=== PATIENT | male | born 2005 | race Hispanic/Latino ===

== ENCOUNTER 2024-10-25 21:19 | Emergency (ER) | payer OTHER, SELFPAY ==
[2024-10-25 21:21] VITALS: BP 127/74; PULSE 88; RESP 16; TEMP 36.6; O2SAT 98
--- OUTSIDE RECORDS SUMMARY | 2024-10-25 21:21 | XMS_ITS | Referral Summary ---
Author Organization [facility] Address [address] [place] [address] Care Team Providers Care Developer Automatic Name Role Phone Unknown, Notinfile Primary Care Provider Unavail able Allergies No known active allergies Medications No known medications Social History Tobacco Use Types Packs/Day Years Used Date Smoking Tobacco: Never Assessed Personal Safety Answer Date Recorded Have you ever been in or are you currently in a harmful physical or emotional relationship or is someone making you feel afraid or unsafe? Denies 05/05/2023 Sex and Gender Information Value Date Recorded Sex Assigned at Not on file Legal Sex Male 3:09 PM CDT Gender Identity Not on file Sexual Orientation Not on file Last Filed Vital Signs Vital Sign Reading Time Taken Comments Blood Pressure 134/69 05/05/2023 1:30 PM CDT Pulse 90 05/05/2023 1:30 PM CDT Temperature 36.7 C (98.1 F) 05/05/2023 9:19 AM CDT Respiratory Rate 18 05/05/2023 9:19 AM CDT Oxygen Saturation 97% 05/05/2023 1:30 PM CDT Inhaled Oxygen Concentration - - Weight 72.6 kg (160 lb) 05/05/2023 4:03 AM CDT Height - - Body Mass Index - - Plan of Treatment Not on file Insurance [facility] [place] [address] MEDICAID Care Teams Developer Automatic Relationship Specialty Start Date End Date Unknown, Notinfile PCP - General 06/09/18
--- OUTSIDE RECORDS SUMMARY | 2024-10-25 21:21 | XMS_ITS | Referral Summary ---
Author Organization [facility] Address [address] [place] [address] Care Team Providers Care Chandelier Maker Name Role Phone Dominic Kingston MD Primar y Care Provider Source Comments [facility],non-owned Affiliates and Associated Physician Practices is amultiple site organization consisting of ambulatory clinics and hospital sitesin [place], [place], [place] and [place]. This disclosure is being madepursuant to the Care Everywhere program and may not contain all information available regarding this patient. Last updated 18.[facility] Position[facility] Allergies No known active allergies Medications * Be aware that medications may not be up to date on this document. Alwaysverify current medications with the patient. Medication Sig Dispensed Refills Start Date End Date Status acetaminophen (TYLENOL) 160 MG/5ML solution Take 20 mL by mouth every 6 hours as needed for Fever or Pain 237 mL 1 06/02/2018 Active ibuprofen (ADVIL; MOTRIN) 100 MG/5ML suspension Take 15 mL by mouth every 6 hours as needed for Pain or Fever 237 mL 1 06/05/2018 Active Active Problems Problem Noted Date Diagnosed Date Mucocele of lower lip 05/16/2018 Social History Tobacco Use Types Packs/Day Years Used Date Smoking Tobacco: Never Smokeless Tobacco: Never Sex and Gender Information Value Date Recorded Sex Assigned at Not on file Gender Identity Not on file Sexual Orientation Not on file Last Filed Vital Signs Vital Sign Reading Time Taken Comments Blood Pressure 117/78 06/02/2018 12:00 PM CDT Pulse 69 06/02/2018 12:00 PM CDT Temperature 36.7 C (98 F) 06/02/2018 11:19 AM CDT Respiratory Rate 20 06/02/2018 12:00 PM CDT Oxygen Saturation 98% 06/02/2018 12:00 PM CDT Inhaled Oxygen Concentration - - Weight 53.8 kg (118 lb 9.7 oz) 06/02/2018 8:14 A M CDT Height 162 cm (5' 3.78 ) 06/02/2018 8:14 AM CDT Body Mass Index 20.5 06/02/2018 8:14 AM CDT Functional Status Functional Status Response Date of Assess ment Is person deaf or have serious hearing difficult y? No 06/02/2018 Is person blind or have serious difficulty seein g? No 06/02/2018 Does person have serious dif ficulty walking/climbing stairs? No 06/02/2018 Does person have difficulty dressing/bathing? No 06/02/2018 Does person have difficulty doing errands alone? No 06/02/2018 Cognitive Status Response Date of Assessm ent Does person have difficulty concentrating/remembering/making decisions? No 06/02/2018 Plan of Treatment Not on file Care Teams Chandelier Maker Relationship Specialty Start Date End Date Dominic Kingston MD [address] [place] [id number] PCP - General Internal Medicine 11/07/17
--- OUTSIDE RECORDS SUMMARY | 2024-10-25 21:21 | XMS_ITS | Patient Health Summary ---
Author Organization [facility] Address [address] [place] [place] [address] Care Team Providers Care Manufacturing Management Associate Name Role Phone Dominic Kingston MD Primar y Care Provider Note from [facility],non-owned Affiliates and Associated Physician Practices is amultiple site organization consisting of ambulatory clinics and hospital sitesin [place], [place], [place] and [place]. This disclosure is being madepursuant to the Care Everywhere program and may not contain all information available regarding this patient. Last updated 18.[facility] Allergies No known active allergies Medications * Be aware that medications may not be up to date on this document. Alwaysverify current medications with the patient. * acetaminophen (TYLENOL) 160 MG/5ML solution(Started 06/02/2018) Take 20 mL by mouth every 6 hours as needed for Fever or Pain 1 refill remaining * ibuprofen (ADVIL; MOTRIN) 100 MG/5ML suspension(Started 06/05/2018) Take 15 mL by mouth every 6 hours as needed for Pain or Fever 1 refill remaining Active Problems Problem Noted Date Diagnosed Date [...] Mass Index 20.5 06/02/2018 8:14 AM CDT Procedures * PATHOLOGY TISSUE EXAM (STL)(Performed 06/02/2018) Performed for Acquired anomaly of mouth * EXCISION LESION SIMPLE REPAIR MOUTH OF MUCOSA AND SUB MUCOSA(Performed 06/02/2018) Performed for Acquired anomaly of mouth * EKG 15-LEAD(Performed 11/20/2017) Performed for Cardiac murmur, previously undiagnosed Results * GROSS + MICRO EXAM (STL) (06/02/2018 10:52 AM CDT) Case Report Surgical Pathology Report Case: [id number] Authorizing Provider: Praneeth Andrew MD Collected: 06/02/2018 10:52 AM Ordering Location: [facility] Received: 06/02/2018 12:27 PM Pathologist: Evette Arellano MD Specimen: Mucocele, mucocele- left lower lip 06/04/2018 6:58 PM T [facility] Final Diagnosis SOFT TISSUE, LEFT LOWER LIP, EXCISION: - MUCOCELE WITH ACUTE AND CHRONIC INFLAMMATION SALIVARY GLAND, LEFT LOWER LIP: - MILD CHRONIC INFLAMMATION 06/04/2018 6:58 PM [facility] Clinical History The patient is a 12-year-old boy who underwent excision of an oral mucocele after biting his lip 3 years ago. 06/04/2018 6:58 PM T [facility] Gross Description Submitted fresh in one container for gross and microscopic examination, labeled with the patient's name, Dmitry Araya, and left lower mucocele is a 0.7 x 0.4 x 1 cm fragment of roberts-baxter mucosa with attached red-baxter soft tissue. This portion of the specimen is bisected and submitted in cassette A1. Also submitted in the same container are three irregularly-shaped fragments of glistening, pink-baxter soft tissue with an aggregate measurement of 1 x 1.2 x 0.3 cm. This portion of the specimen is submitted in cassette A2. (CT/ns) 06/04/2018 6:58 PM [facility] Microscopic Description 2 H&E Sections show squamous mucosa with salivary glands with mild chronic inflammation with edema, lymphocytes and plasma cells and fibroconnective tissue with irregular cystic spaces without epithelial lining with muciphages, granulation tissue and moderate acute and chronic inflammation. 06/04/2018 6:58 PM T [facility] Disclaimer The performance characteristics of all immunohistochemical and indirect immunofluorescence stains (if any) cited in this report were determined by the Histopathology Laboratory of [facility]. Some of these tests were developed by our own laboratory and have not been cleared or approved by the US Food and Drug Administration (FDA). The FDA does not require this test to go through premarket FDA review. These tests are used for clinical purposes. They should not be regarded as investigational or for research. This laboratory is certified under the Clinical Laboratory Improvement Amendments (CLIA) as qualified to perform high complexity clinical laboratory testing. This case has been personally reviewed and interpreted by the attending (teaching) pathologist. 06/04/2018 6:58 PM T [facility] Embedded Images 06/04/2018 6:58 PM [facility] Pathology/Cytolo gy MUCOUS CYST / Unknown 06/02/2018 10:52 AM CDT 06/02/2018 12:27 PM CDT Praneeth Andrew MD LAB - PATHOLOGY/CYTO LOGY ORDERABLES Performing Organization Address City/State/[facility] Co de Phone Number [facility] [address] [place] [address] * EKG 15-LEAD (11/20/2017 10:00 AM CDT) Ventricular Rate 75 BPM CG MUSE Atrial Rate 75 BPM CG MUSE P-R Interval 140 ms CG MUSE QRS Duration ms 84 ms CG MUSE Q-T Interval ms 380 ms CG MUSE QTC Calculation (Bezet) 424 ms CG MUSE Calculated P [place] 41 degrees CG MUSE Calculated R [place] 122 degrees CG MUSE Calculated T [place] 58 degrees CG MUSE Interpretation EKG * Pediatric ECG Analysis * Normal sinus rhythm No previous ECGs available Confirmed by Cristine Garrett ([id number]) on 11/20/2017 1:56:42 PM CG MUSE 11/20/2017 10:0 0 AM CDT 11/20/2017 1:56 PM CDT Cristine Garrett MD ECG ORDERABLES CG [place] Care Teams Manufacturing Management Associate Relationship Specialty Start Date End Date Dominic Kingston MD [address] [place], [place] [id number] PCP - General Internal Medicine 11/07/17
--- OUTSIDE RECORDS SUMMARY | 2024-10-25 21:21 | XMS_ITS | CONTINUITY OF CARE DOCUMENT ---
Author Name michelle martinez Address Unknown Organization [facility] Address [address] [place] [address] Phone [phone] Care Team Providers Care Embossing Calender Operator Name Role Phone Tong SANDERS, Sindhu Unavailable [phone] Sindhu Fortune MD Unavailable [phone] INSURANCE PROVIDERS Payer name Policy type / Coverage type [place] red alliance party ID [place] MEDICAID (2) Medicaid [id number]
--- OUTSIDE RECORDS SUMMARY | 2024-10-25 21:21 | XMS_ITS | Clinical Summary ---
Author Organization [facility] Address [address] [place] [address] Care Team Providers Care Brine Tank Operator Name Role Phone Unknown, Notinfile Primary Care Provider Unavail able Allergies No known active allergies Medications No known medications Surgical History Surgery Date Site/Laterality Comments INCISION AND DRAINAGE INTRA ORAL ABSCESS Social History Tobacco Use Types Packs/Day Years [...] on file Sexual Orientation Not on file Obstetrics History Last Filed Vital Signs Vital Sign Reading [...] Mass Index - - Plan of Treatment Health Maintenance Due Date Last Done Comments Depression Screening 2003 Hepatitis C Screening 2003 Regular Well Visit/Exam 18-64 2021 Covid-19 Vaccine (3 - 2023-2 5 season) 2024 12/12/2021, 11/21/2021 Influenza Vaccine (#1) 2024 , 11/06/2017, 07/03/2011, Additional history exists DTaP/Tdap/Td Vaccine (7 - Td or Tdap) 04/26/2025 04/26/2015, 09/11/2007, 02/19/2005, Additional history exists Hepatitis B Screening Completed 05/10/2004 , 2003, 2003, Additional history exists Pneumococcal vaccine <65 Completed 005, 05/10/2004, 2003, Additional history exists Varicella Vaccines Completed 09/11/2007, 10/11/2004 HPV Vaccines Completed 01/15/2019, 11/06/2017 Meningococcal Vaccine Completed 03/04/2020 , 04/26/2015, 01/31/2010 Meningococcal B Vaccine Completed 10/04/2020, 03/04 Insurance [facility] MEDICAID Care Teams Brine Tank Operator Relationship Specialty Start Date End Date Unknown, Notinfile PCP - General 06/09/18
--- OUTSIDE RECORDS SUMMARY | 2024-10-25 21:21 | XMS_ITS | Clinical Summary ---
Author Organization [facility] Address [address] [place] [address] Care Team Providers Care Ski Base Trimmer Name Role Phone Dominic Kingston MD Primar y Care Provider Source Comments [facility],non-owned Affiliates and Associated Physician Practices is amultiple site organization consisting of ambulatory clinics and hospital sitesin [place], [place], [place] and [place]. This disclosure is being madepursuant to the Care Everywhere program and may not contain all information available regarding this patient. Last updated 18.[facility] [employer] Allergies No known active allergies Medications * [...] Diagnosed Date Mucocele of lower lip 05/16/2018 Family History Medical History Relation Name Comments Anesthesia Reaction Neg Hx Social History Tobacco Use Types Packs/Day Years [...] Mass Index 20.5 06/02/2018 8:14 AM CDT Plan of Treatment Health Maintenance Due Date Last Done Comments HIV SCREENING 2018 HPV VACCINE (1 - Male 3-dose series) 2018 MENINGOCOCCAL (Group B) VACC INE SHARED DECISION-MAKING (1 of 2 - Standard) 2019 HEPATITIS C SCREENING 07/25/2021 DTAP/TDAP/TD VACCINES (1 - Tdap) 2022 HEPATITIS B VACCINE (1 of 3 - 19+ 3-dose series) 2022 COVID-19 VACCINE (1 - 2023-2 5 season) 2024 INFLUENZA VACCINE (#1) 2024 DEPRESSION SCREENING 08/12/2024 ZOSTER VACCINE (1 of 2) 2053 HIB VACCINE Aged Out No longer eligi ble based on patient's age to complete this topic MENINGOCOCCAL GROUPS A/C/Y/W VACCINE Aged Out No longer eligible b ased on patient's age to complete this topic PNEUMOCOCCAL VACCINE Aged Out No long er eligible based on patient's age to complete this topic Care Teams Ski Base Trimmer Relationship Specialty Start Date End Date Dominic Kingston MD [address] [place] [address] PCP - General Internal Medicine 11/07/17
--- OUTSIDE RECORDS SUMMARY | 2024-10-25 23:38 | XMS_ITS | Clinical Summary ---
Author Organization [facility] o[facility] Address [address] [place] [address] Care Team Providers Care Furniture Upholsterer Apprentice Name Role Phone Unknown, Notinfile Primary Care [...] Meningococcal B Vaccine Completed 10/04/2020, 03/04 Insurance [facility] MEDICAID Care Teams Furniture Upholsterer Apprentice Relationship Specialty Start Date End Date Unknown, Notinfile PCP - General 06/09/18
--- OUTSIDE RECORDS SUMMARY | 2024-10-25 23:38 | XMS_ITS | Referral Summary ---
Author Organization [facility] Address [address] [place] [address] Care Team Providers Care Physiotherapy Aide Name Role Phone Dominic Kingston MD Primar y Care Provider Source Comments [facility],non-owned Affiliates and Associated Physician Practices is amultiple site organization consisting of ambulatory clinics and hospital sitesin [place], [place], [place] and [place]. This disclosure is being madepursuant to the Care Everywhere program and may not contain all information available regarding this patient. Last updated 18.[facility] [employer] Allergies No known active allergies Medications * [...] of Treatment Not on file Care Teams Physiotherapy Aide Relationship Specialty Start Date End Date Dominic Kingston MD [address] [place] [id number] PCP - General Internal Medicine 11/07/17
--- OUTSIDE RECORDS SUMMARY | 2024-10-25 23:38 | XMS_ITS | Clinical Summary ---
Author Organization [facility] Address [address] [place] [address] Care Team Providers Care Electronics Manufacturer Name Role Phone Dominic Kingston MD Primar y Care Provider Source Comments [facility],non-owned Affiliates and Associated Physician Practices is amultiple site organization consisting of ambulatory clinics and hospital sitesin [place], [place], [place] and [place]. This disclosure is being madepursuant to the Care Everywhere program and may not contain all information available regarding this patient. Last updated 18.[facility] [employer] Allergies No known active allergies Medications * [...] age to complete this topic Care Teams Electronics Manufacturer Relationship Specialty Start Date End Date Dominic Kingston MD [address] [place] [address] PCP - General Internal Medicine 11/07/17
--- OUTSIDE RECORDS SUMMARY | 2024-10-25 23:39 | XMS_ITS | CONTINUITY OF CARE DOCUMENT ---
Author Name michelle martinez Address Unknown Organization [facility] Address [address] [place] [address] Phone [phone] Care Team Providers Care Cement Handler Name Role Phone Tong SANDERS, Sindhu Unavailable [phone] Sindhu Fortune MD Unavailable INSURANCE PROVIDERS Payer name Policy type / Coverage type [place] [employer] party ID [place] MEDICAID (2) Medicaid [id number]
--- OUTSIDE RECORDS SUMMARY | 2024-10-25 23:39 | XMS_ITS | Referral Summary ---
Author Organization [facility] Address [address] [place] [address] Care Team Providers Care Help Desk Intern Name Role Phone Unknown, Notinfile Primary Care [...] Plan of Treatment Not on file Insurance [facility] [place] [address] MEDICAID Care Teams Help Desk Intern Relationship Specialty Start Date End Date Unknown, Notinfile PCP - General 06/09/18
--- OUTSIDE RECORDS SUMMARY | 2024-10-25 23:39 | XMS_ITS | Patient Health Summary ---
Author Organization [facility] Address [address] [place] [address] Care Team Providers Care Solid Waste Technician Name Role Phone Dominic Kingston MD Primar y Care Provider Note from [facility],non-owned Affiliates and Associated Physician Practices is amultiple site organization consisting of ambulatory clinics and hospital sitesin [place], [place], [place] and [place]. This disclosure is being madepursuant to the Care Everywhere program and may not contain all information available regarding this patient. Last updated 18.[facility] Allergies No known active allergies [...] CDT) Case Report Surgical Pathology Report Case: [id number] Authorizing Provider: Praneeth Andrew MD Collected: 06/02/2018 10:52 AM Ordering Location: [facility] Received: 06/02/2018 12:27 PM Pathologist: Evette Arellano MD Specimen: Mucocele, mucocele- left lower lip 06/04/2018 6:58 PM T [facility] Final Diagnosis SOFT TISSUE, LEFT LOWER LIP, EXCISION: - MUCOCELE WITH ACUTE AND CHRONIC INFLAMMATION SALIVARY GLAND, LEFT LOWER LIP: - MILD CHRONIC INFLAMMATION 06/04/2018 6:58 PM [facility] Clinical History The patient is a 12-year-old boy who underwent excision of an oral mucocele after biting his lip 3 years ago. 06/04/2018 6:58 PM T [facility] Gross Description Submitted fresh in [...] in cassette A2. (CT/ns) 06/04/2018 6:58 PM [facility] Microscopic Description 2 H&E Sections show squamous mucosa with salivary glands with mild chronic inflammation with edema, lymphocytes and plasma cells and fibroconnective tissue with irregular cystic spaces without epithelial lining with muciphages, granulation tissue and moderate acute and chronic inflammation. 06/04/2018 6:58 PM T [facility] Disclaimer The performance characteristics of all immunohistochemical and indirect immunofluorescence stains (if any) cited in this report were determined by the Histopathology Laboratory of [facility]. Some of these tests were developed by [...] attending (teaching) pathologist. 06/04/2018 6:58 PM T [facility] Embedded Images 06/04/2018 6:58 PM [facility] Pathology/Cytolo gy MUCOUS CYST / Unknown 06/02/2018 10:52 AM CDT 06/02/2018 12:27 PM CDT Praneeth Andrew MD LAB - PATHOLOGY/CYTO LOGY ORDERABLES Performing Organization Address City/State/[facility] Co de Phone Number [facility] [address] [place] [address] * EKG 15-LEAD (11/20/2017 10:00 AM CDT) Ventricular Rate 75 BPM CG MUSE Atrial Rate 75 BPM CG MUSE P-R Interval 140 ms CG MUSE QRS Duration ms 84 ms CG MUSE Q-T Interval ms 380 ms CG MUSE QTC Calculation (Bezet) 424 ms CG MUSE Calculated P [place] 41 degrees CG MUSE Calculated R [place] 122 degrees CG MUSE Calculated T [place] 58 degrees CG MUSE Interpretation EKG * Pediatric ECG Analysis * Normal sinus rhythm No previous ECGs available Confirmed by Cristine Garrett ([id number]) on 11/20/2017 1:56:42 PM CG MUSE 11/20/2017 10:0 0 AM CDT 11/20/2017 1:56 PM CDT Cristine Garrett MD ECG ORDERABLES CG [place] Care Teams Solid Waste Technician Relationship Specialty Start Date End Date Dominic Kingston MD [address] [place], [place] [id number] PCP - General Internal Medicine 11/07/17
--- NOTE | 2024-10-25 23:40 | ED.WOUNDLAC ---
HPI - Wound/Laceration General Chief Complaint: Wound/Laceration Stated Complaint: lip lac Time Seen by Provider: 10/25/24 23:08 Source: patient Mode of arrival: ambulatory Limitations: no limitations History of Present Illness HPI narrative: This is a 19 year old male that presents to the ER for laceration to the above the upper lip. Reports he was pushing carts over a threshold and the cart bounced up and hit him in the lip. He did not lose consciousness. Denies vision changes, vomiting, numbness, weakness. Up-to-date on tetanus vaccination. Related Data Allergies Allergy/AdvReac Type Severity Reaction Status Date / Time No Known Allergies Allergy Unverified 10/25/24 21:20 Review of Systems Review of Systems: CONSTITUTIONAL: Denies fever EYES: Denies visual changes GASTROINTESTINAL: Denies vomiting NEUROLOGIC: Denies headache, numbness, or weakness. All systems reviewed & are unremarkable except as noted in HPI and below PMFSH Past Medical History Medical History (Updated 10/26/24 @ 00:14 by Elizabeth Capellan PA-C) No active medical problems Social History Social History (Updated 10/26/24 @ 00:13 by Elizabeth Capellan PA-C) Smoking status: Never smoker Exam Narrative: GENERAL: Well-appearing, well-nourished, and in no acute distress. HEAD: Normocephalic. 1.5cm linear laceration into subcutaneous tissue above the upper lip EYES: PERRLA and EOMI. ENT: Nares clear, no rhinorrhea or epistaxis. Mucous membranes moist. Oropharynx without tonsillar hypertrophy exudate or other lesions. Bilateral TMs pearly roberts non-bulging NECK: Supple. No adenopathy or masses. CHEST: Clear to auscultation. No respiratory distress. No wheezes rales or rhonchi HEART: Regular rate and rhythm. No murmur heard. Normal peripheral pulses. EXTREMITIES: Normal range of motion. No edema. SKIN: Warm, dry, no rash. NEURO: No focal deficits. Alert and oriented x3. Cranial nerves 2-12 grossly intact PSYCH: Normal mood and affect Course Course Emergency Course: Patient educated on wound care Vital Signs Vital signs: Vital Signs Temperature 97.9 F 10/25/24 21:21 Pulse Rate 88 10/25/24 21:21 Respiratory Rate 16 10/25/24 21:21 Blood Pressure 127/74 10/25/24 21:21 Pulse Oximetry 98 10/25/24 21:21 Oxygen Delivery Room Air 10/25/24 21:21 Temperature 97.9 F 10/25/24 21:21 Pulse Rate 88 10/25/24 21:21 Respiratory Rate 16 10/25/24 21:21 Blood Pressure 127/74 10/25/24 21:21 Pulse Oximetry 98 10/25/24 21:21 Oxygen Delivery Room Air 10/25/24 21:21 Procedures Laceration Laceration 1: Date: 10/26/24 Time: 00:12 Site: face Size (cm): 1.5 Description: linear Depth: simple, single layer Local Anesthetic: lidocaine 1% Amount of anesthesia used (mL): 1 Pre-repair: wound explored and irrigated ====== Skin Level ====== Skin layer closed with: nylon Size (cm): 6-0 Number of sutures: 3 Technique: simple, interrupted ====== Subcutaneous Layer ====== ====== Muscle Layer ====== ====== Tendon Layer ====== MDM - Wound/Laceration MDM Narrative Medical decision making narrative: Patient presents emergency department for a laceration above the upper lip. He is up-to-date on tetanus vaccination. Wound was cleansed and closed with sutures. Patient educated on wound care. He is to follow up with primary provider. He was given warnings to return to the ER Differential Diagnosis Differential diagnosis: Likely laceration and abrasion Critical Care Time Critical Care Time Critical Care Time: No Discharge Plan Discharge Clinical Impression: Laceration Patient Disposition: Home, Self-Care Condition: Stable Instructions: Antibiotic Form, Care For Your Stitches (ED), Facial Laceration (ED) Additional Instructions: Return to the emergency department if you experience fever, redness or swelling of your wound, abnormal drainage from your wound, or any other symptoms that are concerning to you. Apply antibiotic ointment daily. Follow-up with your primary care doctor for suture removal in 3-5 days. Patient Language: Marshallese Prescriptions: New cephalexin 500 mg capsule 500 mg PO Q8H 5 Days Qty: 15 0RF Follow-up/Referrals: UNKNOWN,DOCTOR [Primary Care Provider] -
== END 2024-10-26 00:27 | disposition home or self-care (01) ==
PROVIDERS: Emergency Provider Physician Assistant
DX: S01.511A Laceration without foreign body of lip, initial encounter (principal); W22.8XXA Striking against or struck by other objects, initial encounter
CPT/HCPCS: 12011; 99283

== ENCOUNTER 2025-01-02 09:10 | Emergency (ER) | payer SELFPAY ==
--- NOTE | ~2025-01-02 | XR_ITS ---
EXAMINATION: XR chest 2V DATE: 01/02/2025 09:55 INDICATION: Hemoptysis TECHNIQUE: PA and lateral views of the chest were obtained. COMPARISON: None FINDINGS: The lungs are clear with no focal airspace opacities, pulmonary edema, pleural effusion or pneumothor ax. The cardiomediastinal silhouette is normal. Visualized bones and soft tissues are unremarkable. IMPRESSION: 1. Normal chest radiograph. Reviewed, dictated and finalized at location A. IMPRESSION: 1. Normal chest radiograph.
--- OUTSIDE RECORDS SUMMARY | 2025-01-02 09:12 | XMS_ITS | Clinical Summary ---
Author Organization [facility] Address [address] [place] [address] Care Team Providers Care Digestion Operator Name Role Phone Dominic Kingston MD Primar y Care Provider Source Comments [facility],non-owned Affiliates and Associated Physician Practices is amultiple site organization consisting of ambulatory clinics and hospital sitesin [place], [place], [place] and [place]. This disclosure is being madepursuant to the Care Everywhere program and may not contain all information available regarding this patient. Last updated 18.[facility] [employer] Allergies No known active allergies Medications * Be aware that medications may not be up to date on this document. Alwaysverify current medications with the patient. 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 Gender Identity Not on file Sexual Orientation [...] VACCINE (1 - 2023-2 5 season) 2024 DEPRESSION SCREENING 08/12/2024 INFLUENZA VACCINE (Season Ended) 2025 ZOSTER VACCINE (1 of 2) 2053 HIB VACCINE Aged Out No longer eligi ble based on patient's age to complete this topic MENINGOCOCCAL GROUPS A/C/Y/W VACCINE Aged Out No longer eligible b ased on patient's age to complete this topic PNEUMOCOCCAL VACCINE Aged Out No long er eligible based on patient's age to complete this topic Insurance [employer] MEDICAID - OUT OF STATE Care Teams Digestion Operator Relationship Specialty Start Date End Date Dominic Kingston MD [address] [place] [id number] PCP - General Internal Medicine 11/07/17
--- OUTSIDE RECORDS SUMMARY | 2025-01-02 09:12 | XMS_ITS | Clinical Summary ---
Author Organization [facility] Address [address] [place] [address] Care Team Providers Care C Programmer Name Role Phone Unknown, Notinfile Primary Care [...] 5 season) 2024 12/12/2021, 11/21/2021 Influenza Vaccine (Season Ended) 2025 10/04/2020, 11/06/2017, 07/03/2011, Additional history exists DTaP/Tdap/Td Vaccine [...] Meningococcal B Vaccine Completed 10/04/2020, 03/04 Insurance [facility] MEDICAID Care Teams C Programmer Relationship Specialty Start Date End Date Unknown, Notinfile PCP - General 06/09/18
--- OUTSIDE RECORDS SUMMARY | 2025-01-02 09:13 | XMS_ITS | CONTINUITY OF CARE DOCUMENT ---
Author Name michelle martinez Address Unknown Organization [facility] Address [address] [place] [address] Phone [phone] Care Team Providers Care Director Of Search Engine Marketing Name Role Phone Tong SANDERS, Sindhu Unavailable Sindhu Fortune MD Unavailable INSURANCE PROVIDERS Payer name Policy type / Coverage type [place] red republican [place] MEDICAID (2) Medicaid [id number]
--- OUTSIDE RECORDS SUMMARY | 2025-01-02 09:13 | XMS_ITS | Referral Summary ---
Author Organization [facility] Address [address] [place] [address] Care Team Providers Care Instructional Design Manager Name Role Phone Unknown, Notinfile Primary Care [...] Plan of Treatment Not on file Insurance [facility] [address] MEDICAID Care Teams Instructional Design Manager Relationship Specialty Start Date End Date Unknown, Notinfile PCP - General 06/09/18
[2025-01-02 09:30] VITALS: BP 131/83; PULSE 94; RESP 16; TEMP 37; O2SAT 100
--- OUTSIDE RECORDS SUMMARY | 2025-01-02 09:59 | XMS_ITS | Clinical Summary ---
Author Organization [facility] Address [address] [place] [address] Care Team Providers Care Director Telehealth Name Role Phone Unknown, Notinfile Primary Care [...] B Vaccine Completed 10/04/2020, 03/04 Insurance [facility] MEDICAID Care Teams Director Telehealth Relationship Specialty Start Date End Date Unknown, Notinfile PCP - General 06/09/18
--- OUTSIDE RECORDS SUMMARY | 2025-01-02 09:59 | XMS_ITS | Clinical Summary ---
Author Organization [facility] Address [address] [place] [address] Care Team Providers Care Railroad Commissioner Name Role Phone Dominic Kingston MD Primar y Care Provider Source Comments [facility],non-owned Affiliates and Associated Physician Practices is amultiple site organization consisting of ambulatory clinics and hospital sitesin [place], [place], [place] and [place]. This disclosure is being madepursuant to the Care Everywhere program and may not contain all information available regarding this patient. 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
--- OUTSIDE RECORDS SUMMARY | 2025-01-02 09:59 | XMS_ITS | Referral Summary ---
Author Organization [facility] Address [address] [place] [address] Care Team Providers Care Insurance Marketing Specialist Name Role Phone Unknown, Notinfile Primary Care [...] Plan of Treatment Not on file Insurance [facility] [place] [address] [address] [place] [address] MEDICAID Care Teams Insurance Marketing Specialist Relationship Specialty Start Date End Date Unknown, Notinfile PCP - General 06/09/18
--- OUTSIDE RECORDS SUMMARY | 2025-01-02 09:59 | XMS_ITS | CONTINUITY OF CARE DOCUMENT ---
Author Name michelle martinez Address Unknown Organization [facility] Address [address] [place] [address] Phone [phone] Care Team Providers Care Marine Fitter Name Role Phone Tong SANDERS, Sindhu Unavailable Sindhu Fortune MD Unavailable [phone] INSURANCE PROVIDERS Payer name Policy type / Coverage type [place] red libertarian [place] MEDICAID (2) Medicaid [id number]
--- NOTE | 2025-01-02 10:14 | ED.GENADULT ---
HPI - General Adult General Chief complaint: Unspecified Stated complaint: coughed up blood Time Seen by Provider: 01/02/25 09:49 History of Present Illness HPI narrative: 19-year-old male presenting to the emergency department for evaluation for hemoptysis. Patient states he has had cough congestion over the last 5 days. Patient states this morning he coughed up a small amount of blood. At time of evaluation patient denies any shortness of breath patient has no cough and is resting comfortably. Patient does not take any blood thinners. Related Data Allergies Allergy/AdvReac Type Severity Reaction Status Date / Time No Known Allergies Allergy Unverified 01/02/25 09:32 Review of Systems Review of Systems: All systems reviewed & are unremarkable except as noted in HPI and below PMFSH Past Medical History Medical History (Updated 01/02/25 @ 11:26 by Cliff Madison MD) No active medical problems Social History Social History (Updated 10/26/24 @ 00:13 by Elizabeth Capellan PA-C) Smoking status: Never smoker Exam Narrative: APPEARANCE: Well appearing, no pain, no distress, well-nourished. HEAD: normocephalic, atraumatic. EYES: PERRLA/EOMI, conjunctivae clear. NOSE: Normal no drainage EARS:TMS clear with good light reflex. THROAT: Pharynx clear, no exudate. NECK: Supple. No adenopathy, no masses. RESPIRATORY: Airway patent, respirations nonlabored. Clear to auscultation bilaterally, no rales, rhonchi, wheezing. CARDIOVASCULAR: Regular rate and rhythm without murmurs rubs or gallops. ABDOMINAL: Soft, nontender, nondistended, normal bowel sounds MUSCULOSKELETAL: Moves all extremities. Strength/ROM intact, No edema, No calf tenderness. NEURO: Alert. Cranial nerves II through XII intact. Good gait. Good coordination SKIN: Warm, dry. Normal Color Course Vital Signs Vital signs: Vital Signs Temperature 98.6 F 01/02/25 09:30 Pulse Rate 94 01/02/25 09:30 Respiratory Rate 16 01/02/25 09:30 Blood Pressure 131/83 01/02/25 09:30 Pulse Oximetry 100 01/02/25 09:30 Temperature 98.6 F 01/02/25 09:30 Pulse Rate 94 01/02/25 09:30 Respiratory Rate 16 01/02/25 09:30 Blood Pressure 131/83 01/02/25 09:30 Pulse Oximetry 100 01/02/25 09:30 Medical Decision Making [facility] Narrative Medical decision making narrative: 19-year-old male presents emergency department for evaluation for hemoptysis. Patient is currently afebrile but does have a leukocytosis of 10.3 and hemoglobin of 14.7. Patient's INR is 1.0. Patient has no thrombocytopenia. No acute abnormalities on his CMP patient was negative for influenza RSV and for COVID chest x-ray shows no acute cardiopulmonary mallet. Patient has had no significant cough or hemoptysis in the emergency department. Suspect bronchitis and viral etiology. Patient will be discharged home with albuterol inhaler and Tessalon Perles for symptom control. Differential Diagnosis Differential Diagnosis: Pneumonia, bronchitis, pulmonary embolism hemoptysis Vital Signs Vital Signs: Vital Signs Temperature 98.6 F 01/02/25 09:30 Pulse Rate 94 01/02/25 09:30 Respiratory Rate 16 01/02/25 09:30 Blood Pressure 131/83 01/02/25 09:30 Pulse Oximetry 100 01/02/25 09:30 Temperature 98.6 F 01/02/25 09:30 Pulse Rate 94 01/02/25 09:30 Respiratory Rate 16 01/02/25 09:30 Blood Pressure 131/83 01/02/25 09:30 Pulse Oximetry 100 01/02/25 09:30 Lab Data Lab results reviewed: Yes I reviewed the patient's lab results. 01/02/25 10:30 01/02/25 10:30 Labs: Lab Results 01/02/25 Range/Units 10:30 WBC 10.3 H (4.5-10.0) K/mm3 RBC 5.24 (4.6-6.20) M/mm3 Hgb 14.7 (14.0-18.0) g/dL Hct 45.2 (42.0-52.0) % MCV 86.3 (80-100) fl MCH 28.1 (26-34) pg MCHC 32.5 (32-36) g/dl RDW 13.0 (11.5-14.5) % Plt Count 264 (150-375) k/mm3 MPV 10.1 (7.4-10.4) fl Immature Gran % (Auto) 0.6 H (0-0.5) % Neut % (Auto) 85.3 H (45.5-73.1) % Lymph % (Auto) 9.8 L (18.3-44.2) % [place] % (Auto) 3.6 (2.6-8.5) % Eos % (Auto) 0.5 (0-4.4) % Baso % (Auto) 0.2 (0.2-1.2) % Lymph # (Auto) 1.01 (0.9-3.2) K/mm3 [place] # (Auto) 0.4 (0.1-0.6) K/mm3 Eos # (Auto) 0.1 (0-0.3) K/mm3 Baso # (Auto) 0.0 (0.0-0.1) K/mm3 Abs Immat Gran (auto) 0.06 H (0.00-0.031) K/mm3 Absolute Neuts (auto) 8.8 H (1.3-6.7) K/mm3 Absolute Nucleated RBC 0.000 (0.0-0.012) K/mm3 Nucleated RBC % 0.0 (0.0-0.2) % PT 13.2 (11.1-14.7) Seconds INR 1.0 APTT 25.0 (22.3-36.8) Seconds Sodium 139 (137-145) mmol/L Potassium 3.8 (3.4-5.0) mmol/L Chloride 104 (98-107) mmol/L Carbon Dioxide 23 (22-30) mmol/L Anion Gap 12 (4-12) mmol/L BUN 13 (9-20) mg/dL Creatinine 0.68 L (0.7-1.3) mg/dL Estim Creat Clear Calc 128 ml/min Estimated GFR > 60 (59 - ) Glucose 121 H (65-110) mg/dL Calcium 8.8 (8.4-10.2) mg/dL Total Bilirubin 0.5 (0.2-1.3) mg/dL AST 38 (17-59) U/L ALT 35 (6-50) U/L Alkaline Phosphatase 105 (38-126) U/L Total Protein 8.0 (6.3-8.2) g/dL Albumin 4.6 (3.5-5.1) g/dL Influenza A (RT-PCR) Negative (Negative) Influenza B (RT-PCR) Negative (Negative) RSV (RT-PCR) Negative (Negative) SARS-CoV-2 RNA (RT-PCR) Negative (Negative) Imaging Data Radiologist's impression: Impressions Chest X-Ray 01/02/25 09:58 IMPRESSION: 1. Normal chest radiograph. Discharge Plan Discharge Clinical Impression: Bronchitis, Hemoptysis Patient Disposition: Home Condition: Stable Instructions: Antibiotic Form, Acute Bronchitis (ED), Coughing Up Blood (Hemoptysis) (ED) Additional Instructions: Albuterol for shortness of breath and Tessalon Perles for cough. Drink plenty of fluids. Have close follow-up with your primary care physician. If you have any worsening symptoms then please call or return to the emergency department. Patient Language: Nepalese Prescriptions: New benzonatate 100 mg capsule 100 mg PO TID PRN (Reason: cough) Qty: 14 0RF albuterol sulfate 90 mcg/actuation HFA aerosol inhaler 1 puff inhalation QID Qty: 6.7 0RF No Action cephalexin 500 mg capsule 500 mg PO Q8H 5 Days Qty: 15 0RF Follow-up/Referrals: PHYSICIAN NOT ON STAFF,NONSTAFF [Primary Care Provider] -
[2025-01-02 10:41] LABS: Basophils Percent Auto 0.2 % (0.2-1.2); Eosinophils Absolute Auto 0.1 K/mm3 (0-0.3); Eosinophils Percent Auto 0.5 % (0-4.4); Hematocrit 45.2 % (42.0-52.0); Hemoglobin 14.7 g/dL (14.0-18.0); Immature Granulocyte Absolute 0.06 K/mm3 (0.00-0.031); Immature Granulocyte Percent A 0.6 % (0-0.5); Lymphocytes Absolute Auto 1.01 K/mm3 (0.9-3.2); Lymphocytes Percent Auto 9.8 % (18.3-44.2); Mean Corpuscular HGB Conc 32.5 g/dl (32-36); Mean Corpuscular Hemoglobin 28.1 pg (26-34); Mean Corpuscular Volume 86.3 fl (80-100); Mean Platelet Volume 10.1 fl (7.4-10.4); Monocytes Absolute Auto 0.4 K/mm3 (0.1-0.6); Monocytes Percent Auto 3.6 % (2.6-8.5); Neutrophils Absolute Auto 8.8 K/mm3 (1.3-6.7); Neutrophils Percent Auto 85.3 % (45.5-73.1); Platelet Count Result 264 k/mm3 (150-375); Red Blood Count 5.24 M/mm3 (4.6-6.20); White Blood Count 10.3 K/mm3 (4.5-10.0)
[2025-01-02 10:48] LABS: Prothrombin Time 13.2 Seconds (11.1-14.7)
[2025-01-02 10:54] LABS: Alanine Aminotransferase 35 U/L (6-50); Albumin Level 4.6 g/dL (3.5-5.1); Alkaline Phosphatase 105 U/L (38-126); Anion Gap 12 mmol/L (4-12); Aspartate Amino Transferase 38 U/L (17-59); Bilirubin,Total 0.5 mg/dL (0.2-1.3); Blood Urea Nitrogen 13 mg/dL (9-20); Calcium 8.8 mg/dL (8.4-10.2); Carbon Dioxide 23 mmol/L (22-30); Chloride 104 mmol/L (98-107); Estimated CRCL calculation 128 ml/min; Estimated Glomerular Filt Rate > 60; Glucose 121 mg/dL (65-110); Potassium 3.8 mmol/L (3.4-5.0); Sodium 139 mmol/L (137-145)
[2025-01-02 11:13] LABS: Influenza A QL RT-PCR Negative (Negative); Influenza B QL RT-PCR Negative (Negative); RSV RNA, RT-PCR Negative (Negative); SARS-CoV-2 RNA PCR Negative (Negative)
== END 2025-01-02 11:35 | disposition home or self-care (01) ==
PROVIDERS: Emergency Provider Emergency Medicine
DX: J40 Bronchitis, not specified as acute or chronic (principal); R04.2 Hemoptysis; Z20.822 Contact with and (suspected) exposure to COVID-19
CPT/HCPCS: 36415; 71046; 80053; 85025; 85610; 85730; 87637; 99283